=== PATIENT | male | born 1985 | race Hispanic/Latino ===

== ENCOUNTER 2016-11-21 14:20 | Emergency (ER) | payer OTHER ==
[2016-11-21 15:10] VITALS: RESP 18; TEMP 98.6; O2SAT 98
[2016-11-21] MEDS ORDERED: Lidocaine 1% Inj (20ml) ONE (15:46)
[2016-11-21] MEDS ORDERED: Lidocaine 1% (10 ml) Inj INFIL STA (15:49)
--- NOTE | 2016-11-21 16:15 | ED PDOC ---
Upper Extremity Pain/Injury Time Seen by Provider: 11/21/16 15:46 Chief Complaint (Nursing): Abnormal Skin Integrity Chief Complaint (Provider): finger laceration History Per: Patient (31 y/o male here with right hand laceration that occurred after injuring self with sharp object. Patient is right hand dominant. Able to move digits without difficulty.) Past Medical History Reviewed: Historical Data, Nursing Documentation, Vital Signs Vital Signs: Last Vital Signs Temp 98.6 F 11/21/16 15:07 Pulse 65 11/21/16 15:07 Resp 18 11/21/16 15:07 BP 128/60 11/21/16 15:07 Pulse Ox 98 11/21/16 15:07 - Family History Family History: States: No Known Family Hx - Allergies Allergies/Adverse Reactions: Allergies Allergy/AdvReac Type Severity Reaction Status Date / Time No Known Allergies Allergy Verified 11/21/16 15:10 Review of Systems ROS Statement: Except As Marked, All Systems Reviewed And Found Negative Physical Exam - Reviewed Nursing Documentation Reviewed: Yes Vital Signs Reviewed: Yes - Physical Exam Appears: Positive for: Well, Non-toxic, No Acute Distress Head Exam: Positive for: ATRAUMATIC, NORMAL INSPECTION, NORMOCEPHALIC Skin: Positive for: Normal Color, Warm, DRY Eye Exam: Positive for: EOMI, Normal appearance, PERRL ENT: Positive for: Normal ENT Inspection Neck: Positive for: Normal, Painless ROM Cardiovascular/Chest: Positive for: Regular Rate, Rhythm Respiratory: Positive for: CNT, Normal Breath Sounds Gastrointestinal/Abdominal: Positive for: Normal Exam, Bowel Sounds, Soft Back: Positive for: Normal Inspection Extremity: Positive for: Normal ROM, Other (1.0cm laceration linear volar surface middle phalanx fifth digit right hand.) Neurologic/Psych: Positive for: Alert, Oriented - ECG O2 Sat by Pulse Oximetry: 98 - Progress ED Course And Treament: tetanus up to date Disposition - Clinical Impression Clinical Impression: Finger laceration - Patient ED Disposition Is Patient to be Admitted: No - Disposition Disposition: Routine/Home Disposition Time: 16:17 Condition: IMPROVED Additional Instructions: RETURN TO ED/PMD/URGENT CARE IN 7 TO 10 DAYS FOR REMOVAL OF SUTURES Instructions: Laceration (ED) Procedure: Wound Repair - Time Performed Time Performed: 16:15 - Time Out Time Out: Site verified - Consent Obtained Consent obtained: Verbal - Performed by Performed by: Simin-level Provider - Indications Indication(s):: Laceration - Location Location:: Right, Hand Finger:: Ring Shape:: Linear Dimensions Length cm: 1.0cm Depth:: Epidermis - Anesthetic Technique Anesthetic Technique: Local Local/Regional Anesthetic:: Lidocaine 1% - Irrigated Irrigated with ml of normal saline: 150ml - Complexity Complexity:: Simple (one layer) - Wound repair method Sutures:: # (two), Size (5-0), Type (nylon), Technique (interrupted) - Complications Complications: patient had vasovagal reaction with near syncope; quick recovery noted. - Patient tolerated procedure Patient Tolerated Procedure:: Well
[2016-11-21 17:03] VITALS: BP 128/78; PULSE 76
== END 2016-11-21 17:03 | disposition home or self-care (01) ==
LOC: H.ER 14:20
DX: S61.214A Laceration without foreign body of right ring finger without damage to nail, initial encounter (principal); W26.9XXA Contact with unspecified sharp object(s), initial encounter; Y93.9 Activity, unspecified

== ENCOUNTER 2016-11-28 14:13 | Emergency (ER) | payer OTHER ==
[2016-11-28 14:30] VITALS: BP 124/70; PULSE 66; RESP 18; TEMP 98.2; O2SAT 98
--- NOTE | 2016-11-28 14:34 | ED PDOC ---
HPI: Wound Care - HPI Time Seen by Provider: 11/28/16 14:19 Chief Complaint (Nursing): Suture/Staple Removal Chief Complaint (Provider): Suture removal History Per: Patient History Of Present Illness: Pt presents for removal of sutures on right hand placed 11/21/16 s/p injuring himself with a sharp object. pt denies any swelling, erythema or discharge from wound site. Denies any fever or chills. Offers no additional medical complaints. Exam Limitations: no limitations Onset/Duration Of Symptoms: Days Current Symptoms Are (Timing): Gone Now Severity: None Additional History Per: Patient Past Medical History Reviewed: Historical Data, Nursing Documentation, Vital Signs Vital Signs: Last Vital Signs Temp 98.2 F 11/28/16 14:28 Pulse 66 11/28/16 14:28 Resp 18 11/28/16 14:28 BP 124/70 11/28/16 14:28 Pulse Ox 98 11/28/16 14:28 - Medical History PMH: No Chronic Diseases - Surgical History Surgical History: No Surg Hx - Family History Family History: States: No Known Family Hx - Living Arrangements Living Arrangements: With Family - Social History Current smoker - smoking cessation education provided: No Alcohol: None Drugs: Denies - Allergies Allergies/Adverse Reactions: Allergies Allergy/AdvReac Type Severity Reaction Status Date / Time No Known Allergies Allergy Verified 11/21/16 15:10 Review of Systems ROS Statement: Except As Marked, All Systems Reviewed And Found Negative Constitutional: Negative for: Fever, Chills Skin: Negative for: Other (drainage, swelling, erythema to wound) Physical Exam - Reviewed Nursing Documentation Reviewed: Yes Vital Signs Reviewed: Yes - Physical Exam Appears: Positive for: Well, Non-toxic, No Acute Distress Head Exam: Positive for: ATRAUMATIC, NORMAL INSPECTION, NORMOCEPHALIC Skin: Positive for: Normal Color Neck: Positive for: Normal Respiratory: Negative for: Respiratory Distress Extremity: Positive for: Normal ROM. Negative for: Deformity, Swelling Neurologic/Psych: Positive for: Alert, Oriented - ECG O2 Sat by Pulse Oximetry: 98 (RA) Pulse Ox Interpretation: Normal Medical Decision Making Medical Decision Making: Time: [id number] Impression: Suture removal Plan: -- Sutures removed with suture removal kit and #11 blade. No complications and pt tolerated procedure well. Stable for d/c home. Scribe Attestation: Documented by Sena Godwin, acting as a scribe for JOHN Rodney Provider Attestation: All medical record entries made by the Scribe were at my direction and personally dictated by me. I have reviewed the chart and agree that the record accurately reflects my personal performance of the history, physical exam, medical decision making, and the department course for this patient. I have also personally directed, reviewed, and agree with the discharge instructions and disposition. Disposition - Clinical Impression Clinical Impression: Removal of suture - Patient ED Disposition Is Patient to be Admitted: No - Disposition Disposition: Routine/Home Disposition Time: 14:50 Condition: GOOD Instructions: Stitches Removal (ED)
== END 2016-11-28 15:00 | disposition home or self-care (01) ==
LOC: H.ER 14:13
DX: Z48.02 Encounter for removal of sutures (principal)